=== PATIENT | female | born 1990 | race Caucasian/White ===

== ENCOUNTER 2017-10-19 21:10 | Emergency (ER) | payer BC ==
[2017-10-19 23:46] LABS: ABS Basophils 0.1 10^3/ul (0-0.2); ABS Eosinophils 0.4 10^3/ul (0-0.6); ABS Monocytes 0.8 10^3/ul (0-0.8); ABS Neutrophils 6.8 10^3/ul (1.5-7.7); ABS Nucleated RBC 0 10^3/ul; Eosinophil % 3.9 % (0-6); Hematocrit 36 % (35-47); Hemoglobin 12.3 g/dl (12.0-16.0); Lymphocyte % 26.8 % (25-47); Mean Corpuscular HGB Conc 34 g/dl (31-36); Mean Corpuscular Hemoglobin 31 pg (27-31); Mean Corpuscular Volume 91 fL (80-97); Mean Platelet Volume 7 um3 (7.4-10.4); Nucleated Red Blood Cells % 0; Platelet Count 341 10^3/ul (150-450); Red Blood Count 3.98 10^6/ul (4.0-5.4); Red Cell Distribution Width 12 % (10.5-15); White Blood Count 11.1 10^3/ul (3.5-10.8)
[2017-10-20 00:02] LABS: EGFR Non-African American 103.7 (>60)
[2017-10-20 00:35] VITALS: BP 131/82
--- NOTE | 2017-10-20 07:19 | RAD ---
INDICATION: Right upper quadrant pain. COMPARISON: There are no prior studies available for comparison. TECHNIQUE: Multiple real-time images of the right upper quadrant were obtained. FINDINGS: The gallbladder appear normal. No gallbladder wall thickening or pericholecystic fluid is present. No intra or extrahepatic ductal distention is present. The common bile duct measured 0.4 cm in diameter. The liver is normal in size without significant focal abnormality. The pancreas is partially obscured by overlying bowel gas. The right kidney is normal in size without evidence for hydronephrosis. IMPRESSION: NEGATIVE EXAM.
--- NOTE | 2017-11-04 01:19 | ED ---
Andra Deluna Emily, scribed for Riccardo Rubalcava MD on 10/19/17 at 2310 . Upper Extremity Pain - HPI Summary HPI Summary: This patient is a 27 year old F presenting to [facility] accompanied by family with a chief complaint of intermittent R shoulder pain that began at 0300 today. The patient rates the pain 3/10 in severity. Symptoms aggravated by position. Symptoms alleviated by nothing. Patient reports nausea and RUQ abd pain. Patient denies urinary symptoms, bowel symptoms, fever, and chills. Medications reviewed. Allergies reviewed. - History of Current Complaint Chief Complaint: EDExtremityUpper Stated Complaint: RT SHOULDER PAIN Hx Obtained From: Patient Onset/Duration: Started Hours Ago, Still Present Timing: Intermittent, Lasting Hours Severity Initially: Mild Severity Currently: Mild Aggravating Factor(s): Nothing Alleviating Factor(s): Nothing Associated Signs & Symptoms: Positive: Nausea, Other - Positive abd pain. Negative urinary symptoms, bowel symptoms, fever, and chills - Allergies/Home Medications Allergies/Adverse Reactions: Allergies Allergy/AdvReac Type Severity Reaction Status Date / Time Amoxicillin Allergy Hives Verified 10/19/17 21:30 PMH/Surg Hx/FS Hx/Imm Hx Previously Healthy: Yes Opthamlomology History: Denies: Hx Legally Blind EENT History: Denies: Hx Deafness Infectious Disease History: No Infectious Disease History: Reports: Traveled Outside the [place] in Last 30 Days - [place] - Family History Known Family History: Positive: Cardiac Disease, Diabetes - Social History Occupation: Student Lives: With Family Alcohol Use: Occasionally Hx Substance Use: No Substance Use Type: Reports: None Hx Tobacco Use: No Smoking Status (MU): Never Smoked Tobacco Review of Systems Negative: Fever, Chills Gastrointestinal: Negative Positive: Nausea Genitourinary: Negative Positive: Other - Positive R shoulder pain All Other Systems Reviewed And Are Negative: Yes Physical Exam - Summary Physical Exam Summary: Appearance: Well-appearing, Well-nourished Skin: Warm, Dry, No rash Eyes: Normal, PERRL, EOMI, sclera anicteric ENT: Normal Neck: Supple, nontender Respiratory: Clear to auscultation Cardiovascular: S1, S2, no murmur, no rub, no gallop Abdomen: Soft, nontender, no organomegaly Bowel sounds: Present Musculoskeletal: Normal, Strength/ROM Intact, no edema, pulses symmetrical Neurological: Normal, A&Ox3, cranial nerves II-XII WNL, follows commands, gait not tested, sensation intact to pin and light touch Psychiatric: affect normal, behavior appropriate, dressed appropriately, judgment intact Triage Information Reviewed: Yes Vital Signs On Initial Exam: Initial Vitals Temp Pulse Resp BP Pulse Ox 98.4 F 93 16 143/95 98 10/19/17 21:20 10/19/17 21:20 10/19/17 21:20 10/19/17 21:20 10/19/17 21:20 Vital Signs Reviewed: Yes Diagnostics - Vital Signs Vital Signs Temp Pulse Resp BP Pulse Ox 10/19/17 21:20 98.4 F 93 16 143/95 98 - Laboratory Result Diagrams: 10/19/17 23:30 10/19/17 23:30 Lab Statement: Any lab studies that have been ordered have been reviewed, and results considered in the medical decision making process. - Additional Comments Diagnostic Additional Comments: US abdomen limited reveals, per radiologist, unremarkable gallbladder, liver, right kidney, and visualized aorta, IVC and pancreas. Normal common duct diameter, 4 mm. ED physician has reviewed this radiology report. Course/Dx - Course Assessment/Plan: This patient is a 27 year old F presenting to [facility] accompanied by family with a chief complaint of intermittent R shoulder pain that began at 0300 today. Patient reports nausea and RUQ abd pain. Physical Exam Findings. Nml. US abdomen limited reveals, per radiologist, unremarkable gallbladder, liver, right kidney, and visualized aorta, IVC and pancreas. Normal common duct diameter, 4 mm. Bloodwork obtained. Patient will be discharged with follow up from PCP. The patient is agreeable with this plan. - Diagnoses Provider Diagnoses: Rotator cuff tendonitis Discharge - Discharge Plan Condition: Good Disposition: HOME Patient Education Materials: Rotator Cuff Tendinitis (ED) Referrals: Martha Stubbs MD [Primary Care Provider] - The documentation as recorded by the Andra lyles Emily accurately reflects the service I personally performed and the decisions made by me, Riccardo Rubalcava MD.
== END 2017-10-20 00:32 | disposition home or self-care (01) ==
LOC: ED 21:10
DX: M75.101 Unspecified rotator cuff tear or rupture of right shoulder, not specified as traumatic (principal); R11.0 Nausea; M25.511 Pain in right shoulder
CPT/HCPCS: 36415; 76705; 80053; 83690; 85025; 99282